=== PATIENT | female | born 1990 | race Caucasian/White ===

== ENCOUNTER 2016-08-31 22:01 | Emergency (ER) | payer OTHER ==
[~2016-08-31 22:01] MED LIST: BACTRIM DS TABL1 TA1 PO; FERROUS GL324 ( 36 ) PO; HUMALOG100 U/M2 SQ; KEFLEX500 M1 PO; LEVAQUIN PO; METFORMIN HCL500 M1 PO; METFORMIN PO; SPIRONOLACTONE50 MG PO; SPRINTEC; ST JOSEPH ASPIR81 MG PO; TRAZODONE PO; VISTARIL50 MG PO; VIT B-12 PO; VITAMIN B-1000 MCG/1 INJ; WELLBUTRIN XL150 M2 PO
[2016-08-31] MEDS ORDERED: KEFLEX500 M2 PO (22:17)
[2016-08-31 23:21] LABS: BASOPHIL# 0.2 X10e3 (0-0.3); BASOPHIL% 1.1 % (0-2.5); DIFF IND NO; EOSINOPHIL# 0.4 X10e3 (0-0.7); EOSINOPHIL% 3.2 % (0.0-7.0); HEMATOCRIT 35.5 % (35.0-45.0); HEMOGLOBIN 11.7 gm/dL (12.0-16.0); LYMPHOCYTE% 29.1 % (17.0-45.0); MEAN CELL VOLUME 82.4 FL (83-96); MEAN CORPUSCULAR HEMOGLOBIN 27.3 PG (28-34); MEAN CORPUSCULAR HGB CONC 33.1 g/dL (30-36); MEAN PLATELET VOLUME 7.3 FL (6.5-11.5); MONOCYTE# 0.7 X10e3 (0-1.0); MONOCYTE% 5.1 % (3.0-12.0); NEUTROPHIL# 8.5 X10e3 (1.5-7.1); NEUTROPHIL% 61.5 % (40-75); PLATELET COUNT 365 X10e3 (140-420); RED BLOOD COUNT 4.31 X10e (3.90-5.30); RED CELL DISTRIBUTION WIDTH 14.8 % (11.0-15.5); WHITE BLOOD COUNT 13.9 X10e3 (4.0-10.5)
[2016-08-31 23:40] LABS: ALBUMIN SERUM 3.7 g/dL (3.5-5.0); ALKALINE PHOSPHATASE 85 U/L (32-92); ALT (SGPT) 17 U/L (10-40); AST (SGOT) 16 U/L (10-42); BILIRUBIN,TOTAL 0.3 mg/dL (0.2-2.0); BLOOD UREA NITROGEN 12 mg/dL (9-23); CALCIUM SERUM 9.9 mg/dL (8.4-10.2); CARBON DIOXIDE 23 mmol/L (22-31); CHLORIDE 102 mmol/L (100-111); CREATININE SERUM 0.8 mg/dL (0.6-1.4); GLOM FILT RATE Estimated 100.4 mL/min (>60); GLUCOSE FASTING 247 mg/dL (70-110); POTASSIUM 4.3 mmol/L (3.5-5.1); PROTEIN TOTAL SERUM 8.4 g/dL (6.0-8.3); SODIUM 135 mmol/L (135-145)
[2016-08-31 23:41] LABS: BILIRUBIN, DIRECT <0.1 mg/dL (0.0-0.2); BILIRUBIN,INDIRECT 0.2 mg/dL (0.0-0.9)
== END 2016-09-01 11:42 | disposition home or self-care (01) ==
LOC: SED 22:01 → CEDOF 09-01 01:21 → SED 09-01 01:21
PROVIDERS: Nurse Practitioner Family
DX: E10.621 Type 1 diabetes mellitus with foot ulcer (principal); Z79.4 Long term (current) use of insulin
CPT/HCPCS: 36415; 80048; 80076; 82947; 83605; 85025; 87040; 96365; 96366; 96375; 99285; J2270; J2405; J2543; J3370